=== PATIENT | female | born 1995 | race Caucasian/White ===

== ENCOUNTER 2024-07-14 14:45 | Inpatient (IN) ==
[2024-07-14] MEDS ORDERED: LIDOCAINE 1% LOCAL 20 ML VIAL INFIL PRN (15:09)
--- NOTE | 2024-07-14 15:17 | History & Physical Report ---
Date of Service July 14, 2024 Assessment & Plan (1) Encounter for supervision of normal intrauterine in primigravida, antepartum: Plan: 29 yo G1 at 39 5/7 wga presented for decreased fm but now found to be in early labor Mild range BP but very uncomfortable, will get labs Fetus cat 1 Labor - augment prn GBS neg epidural prn History of Present Illness Chief Complaint: 29 yo G1 at 39 5/7 wga presented for eval due to decreased FM. Shortly before arriving, started having painful ctx. Overnight had been having some ctx and diarrhea. 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 Grandmother (Maternal) Breast cancer Grandmother (Paternal) Breast cancer Mother Colonic polyp Father Dyslipidemia Depression Denies family history of Ovarian cancer Colorectal cancer Social History Smoking Status: Never smoker Do You Dip or Chew Tobacco: No; Hx Alcohol Use: No Hx Substance Use: No Preferred Language: Maltese Communication Ability: Effective Union Organizer Required: No Beliefs That Will Affect Care: None marital status: marital status details: Eros Robison (33) [phone] Current Living Situation: Spouse Current Living Situation Comment: Eros and torres current occupational status: employed current occupation: [employer] Feels Safe at Home: Yes Physical Exam Genitourinary: OB Exam Abdomen: + vertex Manual OB Exam: + cervical dilation 3 cm, + cervical effacement 70% and + station -2 OB Exam Monitor Tracing: + external FHT monitor used, + external uterine monitor used (q5) and + category I (130/mod/+accel/-decel) Results & Data Vital Signs (Past 12 Hours) Vital Signs Pulse BP 07/14/24 14:49 73 143/80 H Laboratory Results OB Labs: Blood Type B Positive 12/08/23 Antibody Screen NEGATIVE 12/08/23 Hgb 12.1 g/dl (12.0-16.0) 04/28/24 Hct 35.5 % (37.0-47.0) L 04/28/24 MCV 87.0 fL (80.0-100.0) 12/08/23 Plt Count 258 K/uL (130-400) 12/08/23 Rubella IgG Antibody Immune (Immune) 12/08/23 RPR Nonreactive (Nonreactive) 12/08/23 Treponema pallidum Ab Negative (Negative) 04/28/24 Hep Bs Antigen Negative (Negative) 12/08/23 Hepatitis C Antibody Negative (Negative) 12/08/23 HIV 1&2 Ab/P24 Ag 4thGn Negative (Negative) 12/08/23 Glucose 1 Hr 50 gm 67 mg/dl (70-130) L 04/28/24 OB Optional Labs: Chlamydia trachomatis RNA Not Detected (NotDetected) 12/08/23 Neisseria gonorrhoeae RNA Not Detected (NotDetected) 12/08/23 Labs Reviewed: Declines genetics--mln msafp declines smp. GBS neg Diagnostic Findings 06/09 EFW 38%, AC 56%, ant plac Coding Level of Care Code None Diagnoses Encounter for supervision of normal intrauterine in primigravida, antepartum Z34.00
[2024-07-14 15:39] LABS: Hematocrit (blood only) 34.4 % (37.0-47.0); Hemoglobin 12.1 g/dl (12.0-16.0); Mean Corpuscular Hemoglobin 30.8 pg (25.0-34.0); Mean Corpuscular Hgb Conc 35.2 g/dL (32.0-36.0); Mean Corpuscular Volume 87.5 fL (80.0-100.0); Mean Platelet Volume 10.8 fL (9.4-12.4); Platelet Count 211 K/uL (130-400); RDW Coefficient of Variation 12.6 % (11.5-14.5); RDW Standard Deviation 40.1 fL (36.4-46.3); Red Blood Count 3.93 M/uL (4.20-5.40); White Blood Count 8.45 K/ul (4.8-10.8)
[2024-07-14] MEDS: LACTATED RINGER'S 1,000 ML IV PRN (15:42)
[2024-07-14] MEDS ORDERED: ePHEDrine sulfate 50 MG/ML AMP ONE (15:44)
[2024-07-14 15:51] LABS: Albumin Level 3.3 gm/dl (3.4-5.0); Bilirubin,Total 0.3 mg/dl (0.2-1.0); Creatinine Clr Calc Pharmacy 101.4 ml/min; Globulin 3.2 gm/dl (2.5-4.0); Total Protein 6.5 gm/dl (6.0-8.3)
[2024-07-14] MEDS ORDERED: LIDOCAINE 2% MPF LOCAL 5 ML VIAL EPI PRN (15:52)
[2024-07-14] MEDS ORDERED: SODIUM CHLORIDE 0.9% PF INJ 10 ML VIAL EPI PRN (15:52)
[2024-07-14] MEDS ORDERED: ePHEDrine sulfate 50 MG/ML AMP IV PRN (15:52)
[2024-07-14] MEDS ORDERED: fentaNYL citrate PF 100 MCG/2 ML VIAL EPI PRN (15:52)
[2024-07-14] MEDS ORDERED: BUPIVACAINE 0.25% PF 30 ML VIAL EPI PRN (15:52)
[2024-07-14] MEDS ORDERED: diphenhydrAMINE 50 MG/ML VIAL IV PRN (15:52)
[2024-07-14] MEDS ORDERED: NALOXONE HCL 0.4 MG/1 ML VIAL/CARP IV PRN (15:52)
[2024-07-14] MEDS ORDERED: NALBUPHINE HCL INJ 10 MG/ML AMP IV PRN (15:52)
[2024-07-14] MEDS ORDERED: NALOXONE HCL 1 MG in SODIUM CHLORIDE 0.9% 1,000 ML IV PRN (15:52)
[2024-07-14] MEDS ORDERED: ROPIVACAINE 0.5% PF 5 MG/ML 20 ML VIAL EPI PRN (15:52)
--- NOTE | 2024-07-14 15:52 | Anesthesiology Consultation ---
Date of Service July 14, 2024 Assessment & Plan ASA ASA2 Proposed Anesthesia Anesthesia Type: Labor Epidural Risk / Benefits Reviewed With: PT / POA / Parent / Guardian, Accepts Plan and Informed Consent Obtained History Height/Weight Height: 5 ft 7 in Weight: 75.478 kg Allergies Allergy/AdvReac Type Severity Reaction Status Date / Time No Known Allergies Allergy Verified 07/08/24 15:37 Medications Home Medications Medication Instructions Recorded Confirmed Last Taken opdeedch-vtj-Yk-FA 1 tab PO 1XD 11/28/23 07/08/24 07/13/24 20:00 [ Plus] aspirin [Baby Aspirin] 80 mg PO 1XD 03/03/24 07/08/24 07/13/24 20:00 Active Medications Generic Name Dose Route Start Last Admin Trade Name Freq PRN Reason Stop Dose Admin Lactated Ringer's 1,000 mls @ 125 mls/hr 07/14/24 15:09 07/14/24 15:42 Lr IV 07/15/24 15:08 999 mls/hr .Q8H PRN Administration L&D Protocol Protocol Past Medical History Medical History Varicella vaccination Exercise / Class Metabolic Activity II 4-5 Yardwork/Stairs/Walk up hill Past Family History Family History Grandfather (Maternal) No problems noted. Grandmother (Maternal) Breast cancer Grandmother (Paternal) Breast cancer Mother Colonic polyp Father Dyslipidemia Depression Denies family history of Ovarian cancer Colorectal cancer Past Surgical History Surgical History No pertinent past surgical history Past Anesthesia History No Hx of Anesthesia Complications and No Family Hx of Anesthesia Complications History of PONV No Hx of PONV and No Hx of Motion Sickness Social History Smoking Status: Never smoker Do You Dip or Chew Tobacco: No Hx Alcohol Use: No Hx Substance Use: No substance use type: does not use Review of Systems denies fever/cough/ colds/ chest pain/ SOB/ STEPHANIE denies STEPHANIE Physical Exam Vital Signs Last Vital Signs Temp 36.9 C 07/14/24 14:49 Pulse 86 07/14/24 16:51 Resp 16 07/14/24 16:30 BP 127/75 07/14/24 16:47 Pulse Ox 93 07/14/24 16:51 ENMT Mouth: no TMJ abnormality and no dentition abnormality Thyromental Distance: > or= 3.5 Finger Breadths Mallampati Class: II Neck neck extension not limited Respiratory normal respiratory effort; no respiratory distress Auscultation: lungs clear to auscultation bilaterally Cardiovascular Rate/Rhythm: regular rate and regular rhythm Neurologic moves all extremities Psychiatric Orientation: alert and oriented x 3 Testing Laboratory Results 07/14/24 15:15 07/14/24 15:15
[2024-07-14] MEDS: fentANYL 2 MCG/ML BUPIVacaine 0.125%-NSS 100ML BAG ONE (16:13)
[2024-07-14] MEDS: LIDOCAINE 2%/EPINEPHRINE 1:200,000 20 ML PF ONE (16:16)
[2024-07-14] MEDS: BUPIVACAINE 0.25% PF 30 ML VIAL ONE (16:17)
[2024-07-14] MEDS: fentaNYL citrate PF 100 MCG/2 ML VIAL ONE (16:17)
[2024-07-14] MEDS: SODIUM CHLORIDE 0.9% PF INJ 10 ML VIAL ONE (17:15)
[2024-07-14] MEDS: SODIUM CHLORIDE 0.9% PF INJ 10 ML VIAL EPI STA (17:16)
[2024-07-14] MEDS: BUPIVACAINE 0.25% PF 30 ML VIAL EPI STA (17:16)
[2024-07-14] MEDS: LIDOCAINE 2%/EPINEPHRINE 1:200,000 20 ML PF EPI STA (17:16)
[2024-07-14] MEDS: fentaNYL citrate PF 100 MCG/2 ML VIAL EPI STA (17:16)
--- NOTE | 2024-07-14 17:34 | Labor Progress Brief Note ---
Date of Service July 14, 2024 Subjective comfortable w/ epidural Assessment & Plan (1) Encounter for supervision of normal intrauterine in primigravida, antepartum: Plan: 29 yo G1 at 39 5/7 wga presented for decreased fm but now found to be in early labor VSS, labs earlier were wnl Fetus cat 1 Labor - good progress to 4, discussed arom and pt agreeable GBS neg epidural in place Admission and Anticipated Discharge Date Admission Date: July 14, 2024 Physical Exam Genitourinary: Manual OB Exam: + cervical dilation 4 cm, + cervical effacement 70%, + station -2 and + amniotic fluid (arom mec) OB Exam Monitor Tracing: + external FHT monitor used, + external uterine monitor used (q5) and + category I (145/mod/+accel/-decel) Results & Data Vital Signs (Past 12 Hours) Vital Signs Temp Pulse Resp BP Pulse Ox 07/14/24 17:30 80 100 07/14/24 17:25 79 100 07/14/24 17:20 84 100 07/14/24 17:17 81 92 07/14/24 17:15 83 119/68 100 07/14/24 17:10 80 100 07/14/24 17:05 100 07/14/24 17:05 85 07/14/24 17:05 87 93 07/14/24 17:00 83 18 100 07/14/24 16:57 86 125/76 07/14/24 16:55 81 100 07/14/24 16:54 83 139/70 07/14/24 16:51 86 93 07/14/24 16:50 99 H 100 07/14/24 16:47 87 127/75 07/14/24 16:45 91 H 99 07/14/24 16:42 83 130/75 07/14/24 16:40 86 99 07/14/24 16:37 85 125/71 07/14/24 16:35 84 100 07/14/24 16:32 88 126/74 07/14/24 16:30 84 16 100 07/14/24 16:26 83 132/66 07/14/24 16:25 84 99 07/14/24 16:24 78 133/64 07/14/24 16:22 81 134/66 07/14/24 16:20 20 07/14/24 16:20 20 07/14/24 16:20 100 07/14/24 16:20 79 07/14/24 16:20 82 137/73 07/14/24 16:18 79 130/71 07/14/24 16:16 83 141/73 H 07/14/24 16:15 87 100 07/14/24 16:14 96 H 20 156/80 H 07/14/24 16:12 86 136/74 07/14/24 16:10 85 100 07/14/24 16:05 90 100 07/14/24 14:49 73 143/80 H 07/14/24 14:49 98.4 F 20 Coding Level of Care Code None Diagnoses Encounter for supervision of normal intrauterine in primigravida, antepartum Z34.00
[2024-07-14] MEDS ORDERED: NURSING L&D Epidural Breakthrough Pain Update ONE (19:31)
[2024-07-14] MEDS ORDERED: ROPIVACAINE 0.5% 5 MG/ML 30 ML VIAL ONE (19:40)
[2024-07-14] MEDS ORDERED: LIDOCAINE 2% 20 MG/ML 5 ML SYR IV ONE (19:40)
[2024-07-14] MEDS ORDERED: fentaNYL citrate PF 100 MCG/2 ML VIAL ONE (19:40)
[2024-07-14] MEDS ORDERED: LIDOCAINE 2%/EPINEPHRINE 1:200,000 20 ML PF ONE (19:41)
--- NOTE | 2024-07-14 19:48 | Anesthesia Procedure Note ---
Date of Service July 14, 2024 Anesthesia Epidural Re-Dose Vital Signs Temp Pulse Resp BP Pulse Ox 36.9 C 98 H 18 123/66 92 07/14/24 18:23 07/14/24 19:47 07/14/24 19:00 07/14/24 19:31 07/14/24 19:47 Notes Pain Intensity: 8 Dilatation (cm): 7.5 Effacement (%): 100 Called by nursing to evaluate epidural as the patient is having increased pain. The epidural was re-dosed with the following medications (all medications via epidural route) after negative aspiration of the epidural catheter for CSF/HEME. 2ml 2% lidocaine with epi, 3mL ropivacaine 0.5% and 100 mcg fetanyl via epidural After Epidural Re-Dose Mental Status: alert / awake / arousable Pain: improving with treatment Airway Patency, RR, SpO2: stable & adequate BP & HR: stable & adequate
[2024-07-14] MEDS: fentANYL 2 MCG/ML BUPIVacaine 0.125%-NSS 100ML BAG EPI PRN (20:31)
--- NOTE | 2024-07-14 21:54 | Labor Progress Brief Note ---
Date of Service July 14, 2024 Subjective feeling pressure Assessment & Plan (1) Encounter for supervision of normal intrauterine in primigravida, antepartum: Plan: 29 yo G1 at 39 5/7 wga presented for decreased fm but now found to be in early labor VSS, labs earlier were wnl Fetus cat 2, reassuring and improves w/ repositioning Labor - Rn checked and now w/ ant lip. Will re-eval after this repositioning and hopefully can start pushing GBS neg epidural in place Admission and Anticipated Discharge Date Admission Date: July 14, 2024 Physical Exam Genitourinary: OB Exam Monitor Tracing: + external FHT monitor used, + external uterine monitor used (q3) and + category II (155- 160/mod/+accel/intermit variable and early decels) RN just checked - 9-9.5cm Results & Data Vital Signs (Past 12 Hours) Vital Signs Temp Pulse Resp BP Pulse Ox 07/14/24 21:50 96 H 100 07/14/24 21:45 90 07/14/24 21:45 97 H 07/14/24 21:45 81 119/65 07/14/24 21:40 88 99 07/14/24 21:36 108 H 91 07/14/24 21:35 103 H 97 07/14/24 21:30 84 100 07/14/24 21:27 78 121/62 07/14/24 21:25 82 98 07/14/24 21:21 80 93 07/14/24 21:20 80 96 07/14/24 21:15 87 95 07/14/24 21:13 80 115/62 07/14/24 21:10 93 H 96 07/14/24 21:08 81 94 07/14/24 21:05 81 96 07/14/24 21:02 89 93 07/14/24 21:00 80 96 07/14/24 20:55 80 96 07/14/24 20:50 78 96 07/14/24 20:45 85 98 07/14/24 20:40 85 97 07/14/24 20:35 88 97 07/14/24 20:30 82 99 07/14/24 20:28 95 H 91 07/14/24 20:27 89 113/62 07/14/24 20:25 79 97 07/14/24 20:20 99.1 F 82 96 07/14/24 20:15 87 96 07/14/24 20:13 94 H 113/63 07/14/24 20:10 80 97 07/14/24 20:05 85 98 07/14/24 20:01 94 H 93 07/14/24 20:00 89 98 07/14/24 19:55 103 H 99 07/14/24 19:54 87 122/68 07/14/24 19:50 84 119/77 99 07/14/24 19:47 98 H 92 07/14/24 19:45 91 H 100 07/14/24 19:40 78 100 07/14/24 19:35 89 100 07/14/24 19:31 81 123/66 07/14/24 19:30 96 H 100 07/14/24 19:25 90 99 07/14/24 19:23 92 H 91 07/14/24 19:20 85 98 07/14/24 19:15 99 07/14/24 19:15 92 H 07/14/24 19:15 80 119/59 L 07/14/24 19:10 95 H 100 07/14/24 19:05 85 100 07/14/24 19:03 84 91 07/14/24 19:02 79 121/69 07/14/24 19:00 89 18 100 07/14/24 18:55 86 99 07/14/24 18:50 74 100 07/14/24 18:45 75 117/60 100 07/14/24 18:40 85 100 07/14/24 18:35 77 96 07/14/24 18:31 82 136/68 07/14/24 18:30 18 07/14/24 18:30 87 18 100 07/14/24 18:25 83 100 07/14/24 18:23 98.4 F 07/14/24 18:20 80 100 07/14/24 18:15 82 116/64 100 07/14/24 18:11 83 89 L 07/14/24 18:10 83 100 07/14/24 18:05 78 100 07/14/24 18:00 20 07/14/24 18:00 20 07/14/24 18:00 100 07/14/24 18:00 86 07/14/24 18:00 78 109/58 L 07/14/24 17:55 75 99 07/14/24 17:50 78 100 07/14/24 17:45 75 118/56 L 100 07/14/24 17:40 87 96 07/14/24 17:35 80 100 07/14/24 17:30 98.6 F 80 18 100 07/14/24 17:25 79 100 07/14/24 17:20 84 100 07/14/24 17:17 81 92 07/14/24 17:15 83 119/68 100 07/14/24 17:10 80 100 07/14/24 17:05 100 07/14/24 17:05 85 07/14/24 17:05 87 93 07/14/24 17:00 83 18 100 07/14/24 16:57 86 125/76 07/14/24 16:55 81 100 07/14/24 16:54 83 139/70 07/14/24 16:51 86 93 07/14/24 16:50 99 H 100 07/14/24 16:47 87 127/75 07/14/24 16:45 91 H 99 07/14/24 16:42 83 130/75 07/14/24 16:40 86 99 07/14/24 16:37 85 125/71 07/14/24 16:35 84 100 07/14/24 16:32 88 126/74 07/14/24 16:30 84 16 100 07/14/24 16:26 83 132/66 07/14/24 16:25 84 99 07/14/24 16:24 78 133/64 07/14/24 16:22 81 134/66 07/14/24 16:20 20 07/14/24 16:20 20 07/14/24 16:20 100 07/14/24 16:20 79 07/14/24 16:20 82 137/73 07/14/24 16:18 79 130/71 07/14/24 16:16 83 141/73 H 07/14/24 16:15 87 100 07/14/24 16:14 96 H 20 156/80 H 07/14/24 16:12 86 136/74 07/14/24 16:10 85 100 07/14/24 16:05 90 100 07/14/24 14:49 73 143/80 H 07/14/24 14:49 98.4 F 20 Coding Level of Care Code None Diagnoses Encounter for supervision of normal intrauterine in primigravida, antepartum Z34.00
[2024-07-14] MEDS: ACETAMINOPHEN 500 MG TAB PO ONE (22:34)
--- NOTE | 2024-07-14 23:02 | Labor Progress Brief Note ---
Date of Service July 14, 2024 Subjective pushing w/ good effort Assessment & Plan (1) Encounter for supervision of normal intrauterine in primigravida, antepartum: Plan: 29 yo G1 at 39 5/7 wga presented for decreased fm but now found to be in early labor VSS, labs earlier were wnl Fetus cat 2 - baseline slowly rising during pushing to 160s-170s but with good variability still. 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 Does not meet chorio criteria. Pt is pushing effectively and now down to +2 station, was +1 when pushing started not long ago so I think ok to keep pushing as I think close to delivering. Tylenol was ordered and just administered so will continue to monitor closely Admission and Anticipated Discharge Date Admission Date: July 14, 2024 Physical Exam Genitourinary: OB Exam Monitor Tracing: + external FHT monitor used and + external uterine monitor used (q3) Results & Data Vital Signs (Past 12 Hours) Vital Signs Temp Pulse Resp BP Pulse Ox 07/14/24 22:55 86 92 07/14/24 22:54 84 93 07/14/24 22:50 88 97 07/14/24 22:48 109 H 88 L 07/14/24 22:45 82 83 L 07/14/24 22:43 77 139/69 07/14/24 22:42 119 H 88 L 07/14/24 22:40 82 98 07/14/24 22:35 75 L 07/14/24 22:35 99 H 07/14/24 22:35 86 92 07/14/24 22:30 84 97 07/14/24 22:29 86 92 07/14/24 22:25 85 77 L 07/14/24 22:23 83 89 L 07/14/24 22:20 115 H 95 07/14/24 22:17 92 H 93 07/14/24 22:15 99.3 F 101 H 98 07/14/24 22:10 89 98 07/14/24 22:05 83 98 07/14/24 22:01 100 H 87 L 07/14/24 22:00 82 99 07/14/24 21:59 88 134/60 07/14/24 21:55 102 H 95 07/14/24 21:52 106 H 91 07/14/24 21:50 96 H 100 07/14/24 21:45 90 07/14/24 21:45 97 H 07/14/24 21:45 81 119/65 07/14/24 21:40 88 99 07/14/24 21:36 108 H 91 07/14/24 21:35 103 H 97 07/14/24 21:30 84 100 07/14/24 21:27 78 121/62 07/14/24 21:25 82 98 07/14/24 21:21 80 93 07/14/24 21:20 80 96 07/14/24 21:15 87 95 07/14/24 21:13 80 115/62 07/14/24 21:10 93 H 96 07/14/24 21:08 81 94 07/14/24 21:05 81 96 07/14/24 21:02 89 93 07/14/24 21:00 80 96 07/14/24 20:55 80 96 07/14/24 20:50 78 96 07/14/24 20:45 85 98 07/14/24 20:40 85 97 07/14/24 20:35 88 97 07/14/24 20:30 82 99 07/14/24 20:28 95 H 91 07/14/24 20:27 89 113/62 07/14/24 20:25 79 97 07/14/24 20:20 99.1 F 82 96 07/14/24 20:15 87 96 07/14/24 20:13 94 H 113/63 07/14/24 20:10 80 97 07/14/24 20:05 85 98 07/14/24 20:01 94 H 93 07/14/24 20:00 89 98 07/14/24 19:55 103 H 99 07/14/24 19:54 87 122/68 07/14/24 19:50 84 119/77 99 07/14/24 19:47 98 H 92 07/14/24 19:45 91 H 100 07/14/24 19:40 78 100 07/14/24 19:35 89 100 07/14/24 19:31 81 123/66 07/14/24 19:30 96 H 100 07/14/24 19:25 90 99 07/14/24 19:23 92 H 91 07/14/24 19:20 85 98 07/14/24 19:15 99 07/14/24 19:15 92 H 07/14/24 19:15 80 119/59 L 07/14/24 19:10 95 H 100 07/14/24 19:05 85 100 07/14/24 19:03 84 91 07/14/24 19:02 79 121/69 07/14/24 19:00 89 18 100 07/14/24 18:55 86 99 07/14/24 18:50 74 100 07/14/24 18:45 75 117/60 100 07/14/24 18:40 85 100 07/14/24 18:35 77 96 07/14/24 18:31 82 136/68 07/14/24 18:30 18 07/14/24 18:30 87 18 100 07/14/24 18:25 83 100 07/14/24 18:23 98.4 F 07/14/24 18:20 80 100 07/14/24 18:15 82 116/64 100 07/14/24 18:11 83 89 L 07/14/24 18:10 83 100 07/14/24 18:05 78 100 07/14/24 18:00 20 07/14/24 18:00 20 07/14/24 18:00 100 07/14/24 18:00 86 07/14/24 18:00 78 109/58 L 07/14/24 17:55 75 99 07/14/24 17:50 78 100 07/14/24 17:45 75 118/56 L 100 07/14/24 17:40 87 96 07/14/24 17:35 80 100 07/14/24 17:30 98.6 F 80 18 100 07/14/24 17:25 79 100 07/14/24 17:20 84 100 07/14/24 17:17 81 92 07/14/24 17:15 83 119/68 100 07/14/24 17:10 80 100 07/14/24 17:05 100 07/14/24 17:05 85 07/14/24 17:05 87 93 07/14/24 17:00 83 18 100 07/14/24 16:57 86 125/76 07/14/24 16:55 81 100 07/14/24 16:54 83 139/70 07/14/24 16:51 86 93 07/14/24 16:50 99 H 100 07/14/24 16:47 87 127/75 07/14/24 16:45 91 H 99 07/14/24 16:42 83 130/75 07/14/24 16:40 86 99 07/14/24 16:37 85 125/71 07/14/24 16:35 84 100 07/14/24 16:32 88 126/74 07/14/24 16:30 84 16 100 07/14/24 16:26 83 132/66 07/14/24 16:25 84 99 07/14/24 16:24 78 133/64 07/14/24 16:22 81 134/66 07/14/24 16:20 20 07/14/24 16:20 20 07/14/24 16:20 100 07/14/24 16:20 79 07/14/24 16:20 82 137/73 07/14/24 16:18 79 130/71 07/14/24 16:16 83 141/73 H 07/14/24 16:15 87 100 07/14/24 16:14 96 H 20 156/80 H 07/14/24 16:12 86 136/74 07/14/24 16:10 85 100 07/14/24 16:05 90 100 07/14/24 14:49 73 143/80 H 07/14/24 14:49 98.4 F 20 Coding Level of Care Code None Diagnoses Encounter for supervision of normal intrauterine in primigravida, antepartum Z34.00
[2024-07-14] MEDS: OXYTOCIN 30 UNITS/NSS 30 UNITS/500 ML BAG IV PRN (23:58)
[2024-07-15] MEDS: METHYLERGONOVINE MALEATE 0.2 MG/ML AMP ONE (00:06)
--- NOTE | 2024-07-15 00:27 | Delivery Summary ---
Vaginal Delivery Summary Date of Service July 15, 2024 Vaginal Delivery Summary PREOPERATIVE DIAGNOSIS: 1. Single intrauterine at 39 6/7 wga 2. Labor POSTOPERATIVE DIAGNOSIS: 1. Single intrauterine at 39 6/7 wga 2. Labor 3. Mild shoulder dystocia 4. Significant meconium fluid 5. Delivered PROCEDURE: 1. Normal spontaneous vaginal delivery. SURGEON: Christi Danielle MD ANESTHESIA: Epidural. QUANTITATIVE BLOOD LOSS: 167 mL FLUIDS: Continuous LR. URINE OUTPUT: Minimal by straight cath after delivery COMPLICATIONS: None. CONDITION: Stable. INDICATIONS: 29 yo G1 at 39 6/7 wga presented for evaluation due to decreased FM but was found to be in early labor at 3cm. She received an epidural for pain control and underwent arom for dark meconium fluid. She progressed to complete and desired to push. During pushing, baseline was noted to slowly increase to 160s but retained moderate variability with good progress so pushing was continued. Of note, pt had been ill for last few days with a number of sick contacts. FINDINGS: A viable female infant, weight pending with Apgars of 7 and 8 at 1 and 5 minutes respectively. SPECIMEN: Cord blood OPERATIVE REPORT: The patient progressed to 10 cm, 100% effaced and +2 station, pushed over intact perineum with anesthesia to deliver a viable female , weight and Apgars as above. Head of delivered in ALBINA position. No nuchal cord was present. Shoulders did not deliver easily with gentle downward traction and shoulder dystocia was called. McRobert's maneuver and suprapubic pressure were performed which alleviated the dystocia. Remainder of shoulders and body delivered easily. Infant was delivered to maternal abdomen and nursing staff. Delayed cord clamping was deferred due to large amount of meconium intake by infant at delivery but did begin crying very shortly after delivery. Cord was clamped and cut. Cord blood was obtained. Placenta delivered spontaneously intact with 3-vessel cord. IV oxytocin and fundal massage were given however atony was noted and one dose of methergine administered. There was excellent hemostasis. Vagina, cervix, perineum, and placenta were inspected. A vaginal laceration was repaired using 3-0 vicryl in the usual fashion, there was excellent hemostasis. Hemostatic right labial abrasion did not need repaired. Sponge and needle counts correct x2. No sponges were left behind. Mother and stable in immediate period. Events of delivery were reviewed with pt, questions answered to apparent satisfaction [facility] Vaginal Delivery Charge Vaginal Delivery Codes: 46196 global code for the antepartum, delivery, and post- Delivery Type Details:
[2024-07-15] MEDS ORDERED: HYDROCORTISONE ACETATE 25 MG SUPP PR PRN (00:34)
[2024-07-15] MEDS ORDERED: bisacodyL 10 MG SUPP PR PRN (00:34)
[2024-07-15] MEDS ORDERED: OXYTOCIN 30 UNITS/NSS 30 UNITS/500 ML BAG IV PRN (00:34)
[2024-07-15] MEDS: METHYLERGONOVINE MALEATE 0.2 MG/ML AMP IM ONE (01:42)
[2024-07-15 01:57] LABS: Adenovirus PCR Not Detected (NotDetected); Bordetella parapertussis PCR Not Detected (NotDetected); Bordetella pertussis PCR Not Detected (NotDetected); Chlamydia pneumoniae PCR Not Detected (NotDetected); Coronavirus 229E PCR Not Detected (NotDetected); Coronavirus CoV-2 (COVID19)PCR Not Detected (NotDetected); Coronavirus HKU1 PCR Not Detected (NotDetected); Coronavirus NL63 PCR Not Detected (NotDetected); Coronavirus OC43PCR Not Detected (NotDetected); Human Metapneumovirus PCR Not Detected (NotDetected); Influenza A (H1 2009) PCR DETECTED (NotDetected); Influenza B PCR Not Detected (NotDetected); Mycoplasma pneumoniae PCR Not Detected (NotDetected); Parainfluenza Virus 1 PCR Not Detected (NotDetected); Parainfluenza Virus 2 PCR Not Detected (NotDetected); Parainfluenza Virus 3 PCR Not Detected (NotDetected); Parainfluenza Virus 4 PCR Not Detected (NotDetected); Respiratory Syncytial VirusPCR Not Detected (NotDetected); Rhinovirus/Enterovirus PCR Not Detected (NotDetected)
[2024-07-15] MEDS: BENZOCAINE 20% SPRY 85 APPLN/85 GM CAN EXT PRN (03:03)
[2024-07-15] MEDS: ONDANSETRON INJ 2 MG/ML 2 ML VIAL IV PRN (03:03)
[2024-07-15] MEDS: IBUPROFEN 600 MG TAB PO PRN (06:17)
--- NOTE | 2024-07-15 06:33 | Obstetrical Progress Note ---
Date of Service July 15, 2024 Assessment & Plan (1) Vaginal delivery: Plan: Both mom and baby doing well. Continue care per protocol. (2) Flu: Plan: Symptomatic mgmt. Vitals stable Follow contact precautions. Admission and Anticipated Discharge Date Admission Date: July 14, 2024 Supervising Physician Co-Signing Physician Notes Resident Physician Supervision Note: I interviewed and examined the patient. Discussed with Dr. Luna and agree with findings and plan as documented in the note. Any exceptions or clarifications are listed here: PP1 s/p , doing well. Continue routine care, feeling ok from flu standpoint as well Documented By: Christi Danielle MD Subjective 1st PPD Day following 30 years P1 at term. No active complains Both mom and baby doing well. Pain: Mild, intermittent Lochia: Moderate Diet: Regular Ob diet Gas: Not aware of passing, but no abdominal distension Peeing: Normal, no bladder distension Ambulation: Normally Review of Systems Review of Systems: No SOB, chest pain, leg pain No dizziness, headache, palpitation No Blurring of vision , fever Physical Exam Physical Exam: General: Alert and oriented. No acute distress. CVS: S1 S2+ No murmurs, regular rhythm. Respiratory: CTA bilaterally. No rhonchi, wheezes, or crackles. No increased work of breathing. Abdomen: Bowel sound +. Soft, nontender Uterus: Fundus firm and palpable few cm below the umbilicus. Lower extremities: No LE edema. No deep calf pain. Results & Data Vital Signs (Past 12 Hours) Vital Signs Temp Pulse Pulse Resp BP BP Pulse Ox 07/15/24 03:10 36.5 C 66 18 125/77 97 07/15/24 02:13 36.9 C 78 18 118/59 L 07/15/24 01:58 74 125/73 07/15/24 01:43 90 18 122/79 07/15/24 01:28 81 131/63 07/15/24 01:13 77 131/71 07/15/24 01:12 18 07/15/24 01:12 18 07/15/24 00:58 77 18 136/75 07/15/24 00:43 75 18 134/62 07/15/24 00:27 90 18 131/63 07/15/24 00:12 36.9 C 96 H 18 134/62 07/15/24 00:06 108 H 96 07/15/24 00:03 105 H 133/60 94 07/15/24 00:01 107 H 93 07/14/24 23:58 86 135/68 07/14/24 23:57 93 H 94 07/14/24 23:56 91 H 96 07/14/24 23:51 92 07/14/24 23:51 147 H 07/14/24 23:51 155 H 92 07/14/24 23:46 95 07/14/24 23:46 98 H 07/14/24 23:46 127 H 93 07/14/24 23:41 112 H 93 07/14/24 23:40 37.7 C H 07/14/24 23:36 80 92 07/14/24 23:33 135 H 91 07/14/24 23:30 151 H 91 07/14/24 23:28 100 H 137/64 92 07/14/24 23:25 91 H 86 L 07/14/24 23:23 92 H 93 07/14/24 23:20 80 87 L 07/14/24 23:15 104 H 78 L 07/14/24 23:14 82 127/60 07/14/24 23:11 91 H 91 07/14/24 23:10 87 95 07/14/24 23:05 93 07/14/24 23:05 105 H 07/14/24 23:05 89 85 L 07/14/24 23:00 96 07/14/24 23:00 90 07/14/24 23:00 92 H 93 07/14/24 22:55 86 92 07/14/24 22:54 84 93 07/14/24 22:50 88 97 07/14/24 22:48 109 H 88 L 07/14/24 22:45 82 83 L 07/14/24 22:43 77 139/69 07/14/24 22:42 119 H 88 L 07/14/24 22:40 82 98 07/14/24 22:35 75 L 07/14/24 22:35 99 H 07/14/24 22:35 86 92 07/14/24 22:30 84 97 07/14/24 22:29 86 92 07/14/24 22:25 85 77 L 07/14/24 22:23 83 89 L 07/14/24 22:20 115 H 95 07/14/24 22:17 92 H 93 07/14/24 22:15 37.4 C 101 H 98 07/14/24 22:10 89 98 07/14/24 22:05 83 98 07/14/24 22:01 100 H 87 L 07/14/24 22:00 82 99 07/14/24 21:59 88 134/60 07/14/24 21:55 102 H 95 07/14/24 21:52 106 H 91 07/14/24 21:50 96 H 100 07/14/24 21:45 90 07/14/24 21:45 97 H 07/14/24 21:45 81 119/65 07/14/24 21:40 88 99 07/14/24 21:36 108 H 91 07/14/24 21:35 103 H 97 07/14/24 21:30 84 100 07/14/24 21:27 78 121/62 07/14/24 21:25 82 98 07/14/24 21:21 80 93 07/14/24 21:20 80 96 07/14/24 21:15 87 95 07/14/24 21:13 80 115/62 07/14/24 21:10 93 H 96 07/14/24 21:08 81 94 07/14/24 21:05 81 96 07/14/24 21:02 89 93 07/14/24 21:00 80 96 07/14/24 20:55 80 96 07/14/24 20:50 78 96 07/14/24 20:45 85 98 07/14/24 20:40 85 97 07/14/24 20:35 88 97 07/14/24 20:30 82 99 07/14/24 20:28 95 H 91 07/14/24 20:27 89 113/62 07/14/24 20:25 79 97 07/14/24 20:20 37.3 C 82 96 07/14/24 20:15 87 96 07/14/24 20:13 94 H 113/63 07/14/24 20:10 80 97 07/14/24 20:05 85 98 07/14/24 20:01 94 H 93 07/14/24 20:00 89 98 07/14/24 19:55 103 H 99 07/14/24 19:54 87 122/68 07/14/24 19:50 84 119/77 99 07/14/24 19:47 98 H 92 07/14/24 19:45 91 H 100 07/14/24 19:40 78 100 07/14/24 19:35 89 100 07/14/24 19:31 81 123/66 07/14/24 19:30 96 H 100 07/14/24 19:25 90 99 07/14/24 19:23 92 H 91 07/14/24 19:20 85 98 07/14/24 19:15 99 07/14/24 19:15 92 H 07/14/24 19:15 80 119/59 L 07/14/24 19:10 95 H 100 07/14/24 19:05 85 100 07/14/24 19:03 84 91 07/14/24 19:02 79 121/69 07/14/24 19:00 89 18 100 07/14/24 18:55 86 99 07/14/24 18:50 74 100 07/14/24 18:45 75 117/60 100 07/14/24 18:40 85 100 07/14/24 18:35 77 96 O2 Del Method 07/15/24 03:10 Room Air 07/15/24 02:13 07/15/24 01:58 07/15/24 01:43 07/15/24 01:28 07/15/24 01:13 07/15/24 01:12 07/15/24 01:12 07/15/24 00:58 07/15/24 00:43 07/15/24 00:27 07/15/24 00:12 07/15/24 00:06 07/15/24 00:03 07/15/24 00:01 07/14/24 23:58 07/14/24 23:57 07/14/24 23:56 07/14/24 23:51 07/14/24 23:51 07/14/24 23:51 07/14/24 23:46 07/14/24 23:46 07/14/24 23:46 07/14/24 23:41 07/14/24 23:40 07/14/24 23:36 07/14/24 23:33 07/14/24 23:30 07/14/24 23:28 07/14/24 23:25 07/14/24 23:23 07/14/24 23:20 07/14/24 23:15 07/14/24 23:14 07/14/24 23:11 07/14/24 23:10 07/14/24 23:05 07/14/24 23:05 07/14/24 23:05 07/14/24 23:00 07/14/24 23:00 07/14/24 23:00 07/14/24 22:55 07/14/24 22:54 07/14/24 22:50 07/14/24 22:48 07/14/24 22:45 07/14/24 22:43 07/14/24 22:42 07/14/24 22:40 07/14/24 22:35 07/14/24 22:35 07/14/24 22:35 07/14/24 22:30 07/14/24 22:29 07/14/24 22:25 07/14/24 22:23 07/14/24 22:20 07/14/24 22:17 07/14/24 22:15 07/14/24 22:10 07/14/24 22:05 07/14/24 22:01 07/14/24 22:00 07/14/24 21:59 07/14/24 21:55 07/14/24 21:52 07/14/24 21:50 07/14/24 21:45 07/14/24 21:45 07/14/24 21:45 07/14/24 21:40 07/14/24 21:36 07/14/24 21:35 07/14/24 21:30 07/14/24 21:27 07/14/24 21:25 07/14/24 21:21 07/14/24 21:20 07/14/24 21:15 07/14/24 21:13 07/14/24 21:10 07/14/24 21:08 07/14/24 21:05 07/14/24 21:02 07/14/24 21:00 07/14/24 20:55 07/14/24 20:50 07/14/24 20:45 07/14/24 20:40 07/14/24 20:35 07/14/24 20:30 07/14/24 20:28 07/14/24 20:27 07/14/24 20:25 07/14/24 20:20 07/14/24 20:15 07/14/24 20:13 07/14/24 20:10 07/14/24 20:05 07/14/24 20:01 07/14/24 20:00 07/14/24 19:55 07/14/24 19:54 07/14/24 19:50 07/14/24 19:47 07/14/24 19:45 07/14/24 19:40 07/14/24 19:35 07/14/24 19:31 07/14/24 19:30 07/14/24 19:25 07/14/24 19:23 07/14/24 19:20 07/14/24 19:15 07/14/24 19:15 07/14/24 19:15 07/14/24 19:10 07/14/24 19:05 07/14/24 19:03 07/14/24 19:02 07/14/24 19:00 07/14/24 18:55 07/14/24 18:50 07/14/24 18:45 07/14/24 18:40 07/14/24 18:35
[2024-07-15] MEDS: PRENATAL VITAMIN 1 TAB PO SCH (08:41)
[2024-07-15] MEDS: FERROUS SULFATE 325 MG TAB PO SCH (08:41)
[2024-07-15] MEDS: DOCUSATE SODIUM 100 MG CAP PO SCH (08:41)
--- NOTE | 2024-07-15 11:53 | Anesthesia Procedure Note ---
Date of Service July 15, 2024 Anesthesia Post Epidural Note Vital Signs Vital Signs: Temp Pulse Resp BP Pulse Ox O2 Del Method 36.6 C 62 16 144/90 H 98 Room Air 07/15/24 08:30 07/15/24 08:30 07/15/24 08:30 07/15/24 08:30 07/15/24 08:30 07/15/24 08:30 Pain Intensity Bilateral Abdomen: Pain Intensity: 4 Perineal: Pain Intensity: 1 Notes Mental Status: alert / awake / arousable Nausea / Vomiting: adequately controlled Pain: adequately controlled Airway Patency, RR, SpO2: stable & adequate BP & HR: stable & adequate Hydration State: stable & adequate Neuraxial Anesthesia: was administered and sensory block is resolving Anesthetic Complications: no major complications apparent and Pt Satisfied with anesthetic care Epidural: Removed without complications and With tip intact
[2024-07-15] MEDS: ACETAMINOPHEN 325 MG TAB PO PRN (17:47)
[2024-07-15] MEDS: COUGH DROP (SUGAR FREE) LOZ 24 LOZ/1 BOX BUCCAL ONE (17:48)
[2024-07-16] MEDS: DIPHTHER/TETAN/PERTUS Vaccine (Tdap, Adol/Adult) 0.5mL IM ONE (01:24)
[2024-07-16] MEDS: SODIUM CHLORIDE 0.65% NA SOLN 45 ML (OCEAN) ONE (06:16)
--- NOTE | 2024-07-16 06:39 | Obstetrical Progress Note ---
Date of Service July 16, 2024 Assessment & Plan (1) Vaginal delivery: Plan: Both mom and baby doing well. Stable for DC. (2) Flu: Plan: Symptomatic mgmt. Added Mucinex today. Vitals stable Follow contact precautions. Admission and Anticipated Discharge Date Admission Date: July 14, 2024 Supervising Physician Co-Signing Physician Notes Resident Physician Supervision Note: I interviewed and examined the patient. Discussed with Dr. Luna and agree with findings and plan as documented in the note. Any exceptions or clarifications are listed here: [ ] Documented By: Bianca Flaherty MD, FACOG Subjective 2nd PPD Day following 30 years P1 at term. C/o Cough bothering overnight. Mostly dry. Baby doing well in bedside. Pain: Mild, intermittent Lochia: Moderate Diet: Regular Ob diet Gas: Not aware of passing, but no abdominal distension Peeing: Normal, no bladder distension Ambulation: Normally Review of Systems Review of Systems: No SOB, chest pain, leg pain No dizziness, headache, palpitation No Blurring of vision , fever Physical Exam Physical Exam: General: Alert and oriented. No acute distress. CVS: S1 S2+ No murmurs, regular rhythm. Respiratory: CTA bilaterally. No rhonchi, wheezes, or crackles. No increased work of breathing. Abdomen: Bowel sound +. Soft, nontender Uterus: Fundus firm and palpable few cm below the umbilicus. Lower extremities: Mild LE edema. No deep calf pain. Results & Data Vital Signs (Past 12 Hours) Vital Signs Temp Pulse Resp BP Pulse Ox O2 Del Method 07/16/24 03:17 76 132/86 07/15/24 23:50 36.6 C 58 L 20 141/93 H 100 Room Air 07/15/24 19:16 36.6 C 72 20 135/88 98 Room Air Resident Activity Tracking Resident Involvement: Resident Care Provided Care Provided: Adult ED
[2024-07-16 08:51] VITALS: BP 127/84; PULSE 65; RESP 16; TEMP 98.2; O2SAT 98
[2024-07-16] MEDS: guaiFENesin 600 MG TABCR PO SCH (09:34)
[2024-07-16] MEDS ORDERED: bisacodyL 5 MG TABEC PO SCH (20:00)
== END 2024-07-16 12:32 | disposition home or self-care (01) | DRG 807 ==
LOC: OPB 14:45 → 4S1 14:46 → 4E2 07-15 02:45